=== PATIENT | male | born 1955 ===

== ENCOUNTER 2018-08-13 06:30 | Day surgery (SDC) | payer OTHER | END 2018-08-13 13:35 | disposition home or self-care (01) | LOC: AMB-ENDOS 06:30 | DX: K63.5 Polyp of colon (principal); K64.0 First degree hemorrhoids ==

== ENCOUNTER 2020-06-29 08:28 | Day surgery (SDC) | payer OTHER | END 2020-06-29 13:10 | disposition home or self-care (01) | LOC: AMB-ENDOS 08:28 | PROVIDERS: ATTEND Surgery | DX: K62.89 Other specified diseases of anus and rectum (principal); K64.8 Other hemorrhoids; Z20.822 Contact with and (suspected) exposure to COVID-19 ==